=== PATIENT | female | born 1980 | race Caucasian/White ===

== ENCOUNTER 2024-09-22 13:30 | Emergency (ER) | payer MEDICAID ==
[~2024-09-22] VITALS: Ht 172.7 cm; Wt 88.3 kg
[2024-09-22 16:27] VITALS: BP 134/76; PULSE 84; RESP 18; TEMP 98.7; O2SAT 98
== END 2024-09-22 16:31 | disposition home or self-care (01) ==
LOC: ER 13:31
DX: B34.9 Viral infection, unspecified (principal); Z88.0 Allergy status to penicillin
CPT/HCPCS: 87502; 87503; 99283

== ENCOUNTER 2025-04-21 14:14 | Emergency (ER) | payer SELFPAY ==
[~2025-04-21] VITALS: Ht 172.7 cm; Wt 95.7 kg
[2025-04-21 14:21] VITALS: BP 121/82; PULSE 96; RESP 18; O2SAT 96
--- NOTE | 2025-04-21 16:31 | Physician Documentation ---
History of Present Illness ~ Chief Complaint: Allergic Reaction Stated Complaint: HIVES Time Seen by MD: 15:55 Primary Medical Doctor: SHON WATTS HPI 89-year-old female presents to the ED with a complaint of hives that have developed on her legs over the last 2-3 days. She states that they are itchy in nature denies any pain denies any fevers. Medication Reconciliation Allergies: Coded Allergies: Penicillins (Unverified Allergy, Severe, throat swelling, 04/21/25) Review of Systems All Other Systems at this time: Reviewed and Negative ROS As stated above in the HPI, otherwise all systems are reviewed and negative. Physical Exam Vital Signs: Temperature: 97.7, Source: Temporal, Heart Rate: 96, Respiratory Rate: 18, BP: 121/82, Pulse Oximetry: 96, Weight: 95.700 Oxygen Flow Rate: 0 Physical Exam General: Alert, no apparent distress. HEENT: PERRL, EOMI, no injection, moist mucous membranes. Neck: Full range of motion. Respiratory: Lungs clear, no respiratory distress. Chest: No accessory muscle use. Neurologic: Oriented x4. Psychiatric: Normal mood and affect. Skin: Normal color, warm and dry. No edema, no ecchymosis. Mild hives on bilateral lower extremity Progress Results/Orders Results/Orders Completed Orders - GÓMEZ AVELAR NP Triamcinolone Acet 40mg/Ml Inj (Kenalog- (04/21/25 16:30) Medications Received in ER Medications (Trade) Dose Ordered Sig/Sena Route PRN Reason Start Time Stop Time Status Last Admin Dose Admin (Kenalog-40 inj) 40 mg ONCE ONCE IM 04/21/25 16:30 04/21/25 16:31 DC 04/21/25 16:36 40 MG Vital Signs 04/21/25 04/21/25 14:21 17:08 Temp 97.7 97.7 Pulse 96 Resp 18 B/P (MAP) 121/82 Pulse Ox 96 O2 Flow Rate 0 Departure Disposition: 01 HOME / SELF CARE / HOMELESS Impression: Primary Impression: Acute allergic reaction Discharge Instructions: Hives, [id number] Referrals: NO PRIMARY CARE PROVIDER (PCP) Education Educated: Patient Educated regarding: diagnosis Signature Scribe Signature: g Attestation: Scribed for Gómez Avelar Heel Scorer by Gómez Walter NP . 04/21/25 23:06 GÓMEZ AVELAR NP Apr 21, 2025 16:31
[2025-04-21] MEDS: triamcinolone acetonide 40mg/ml inj IM ONE (16:36)
[2025-04-21 17:08] VITALS: TEMP 97.7
== END 2025-04-21 17:10 | disposition home or self-care (01) ==
LOC: ER 14:14
DX: T78.40XA Allergy, unspecified, initial encounter (principal); L50.9 Urticaria, unspecified; Z88.0 Allergy status to penicillin; X58.XXXA Exposure to other specified factors, initial encounter
CPT/HCPCS: 96372; 99283; J3301